=== PATIENT | male | born 1945 | race Caucasian/White ===

== ENCOUNTER 2016-07-04 13:39 | Emergency (ER) | payer MEDICARE, OTHER ==
[~2016-07-04] VITALS: Ht 180.3 cm; Wt 84.1 kg
[~2016-07-04 13:39] MED LIST: AGGRENOX; AMLO-147 PO; CHOLESTEROL MED; CLOP75TA27 PO; HYDR-3498 PO; IBUP-1542 PO; LOSA100T7 PO; METO-429 PO; MIRA25TA PO; MONT10TA24 PO; SILO8CAP PO; TAMS-14 PO; ZOF8 PO; [UNRECOGNIZED DRUG - REMARK]; [UNRECOGNIZED DRUG - REMARK]
[2016-07-04 13:40] VITALS: Ht 180.3 cm; Wt 84.1 kg
[2016-07-04] MEDS ORDERED: morphine 4 MG/ML VIAL IV STA (16:48)
[2016-07-04] MEDS ORDERED: ONDANSETRON 4 MG INJ IV STA ×2 (16:48→18:47)
[2016-07-04] MEDS ORDERED: SOD CHLORIDE 0.9% 1,000 ML IV STA ×2 (16:48→18:47)
[2016-07-04 17:36] LABS: ADD SCAN DIFF NO
[2016-07-04 17:38] LABS: BASOPHILS % 0.5 % (0.0-2.0); EOSINOPHILS # 0.1 10^3/ul (0.0-0.5); EOSINOPHILS % 1.5 % (0.0-7.0); HEMATOCRIT 43.8 % (42.0-52.0); HEMOGLOBIN 14.1 g/dl (14.0-18.0); LYMPHOCYTES # 1.5 10^3/ul (0.8-2.9); LYMPHOCYTES % 25.8 % (15.0-51.0); MEAN CORPUSCULAR HEMOGLOBIN 29.1 pg (29.0-33.0); MEAN CORPUSCULAR HGB CONC 32.2 g/dl (32.0-37.0); MEAN CORPUSCULAR VOLUME 90.3 fl (82.0-101.0); MEAN PLATELET VOLUME 11.1 fl (7.4-10.4); MONOCYTE # 0.6 10^3/ul (0.3-0.9); MONOCYTES % 10.7 % (0.0-11.0); NEUTROPHIL # 3.7 10^3/ul (1.6-7.5); NEUTROPHILS % 61.2 % (39.0-77.0); PLATELET COUNT 185 10^3/UL (140-415); RED BLOOD COUNT 4.85 10^6/ul (4.70-6.10); RED CELL DISTRIBUTION WIDTH 14.5 % (11.5-14.5)
[2016-07-04 17:48] LABS: INR 0.93; PARTIAL THROMBOPLASTIN TIME 27.4 Sec (25.0-35.0); PROTIME 12.5 Sec (12.2-14.2)
[2016-07-04 17:50] LABS: CHLORIDE 104 mmol/L (97-110)
[2016-07-04 17:51] LABS: POTASSIUM 3.7 mmol/L (3.5-5.1); SODIUM 143 mmol/L (135-144)
[2016-07-04 17:53] LABS: ALBUMIN/GLOBULIN RATIO 1.11; ALKALINE PHOSPHATASE 92 IU/L (42-121); AMYLASE 92 U/L (11-123); ANION GAP 15 (8-16); ASPARTATE AMINO TRANSFERASE 24 IU/L (15-46); BILIRUBIN,INDIRECT 0.6 mg/dl (0-1.1); BILIRUBIN,TOTAL 0.6 mg/dl (0.2-1.3); BLOOD UREA NITROGEN 13 mg/dl (7-20); CARBON DIOXIDE 28 mmol/L (21-31); TOTAL PROTEIN 7.6 g/dl (6.1-8.1)
[2016-07-04 17:54] LABS: ALANINE AMINOTRANSFERASE 33 IU/L (13-69); CALCIUM 9.2 mg/dl (8.4-10.2); GLUCOSE 98 mg/dl (70-220)
[2016-07-04 18:07] LABS: TROPONIN-I < 0.012 ng/ml (0.00-0.12)
[2016-07-04 18:30] VITALS: BP 142/121; PULSE 71; RESP 18; TEMP 97.8
[2016-07-04] MEDS ORDERED: HYDROmorphONE 1 MG/ML SYG IV STA (18:47)
--- NOTE | 2016-07-04 18:54 | RADRPT ---
AMENDMENT: 07/04/2016 7:02:52 PM Severo Hall M.d Bilateral adrenal nodules are seen with the largest seen on the left side measuring 2.5 x 2 cm in si ze and are of fat attenuation in consistent with adenomas. Compared to the prior examination, no si gnificant interval change is seen. PROCEDURE: CT abdomen and pelvis without IV contrast. CLINICAL INDICATION: Abdominal pain and right flank pain TECHNIQUE: CT scan of the abdomen and pelvis without contrast was performed on the [employer] volumetric [address] scanner. The patient was scanned without intravenous contrast. Coronal and sagittal refo rmatted images were obtained from the axial source images. The CTDI vol is 15.03 mGy and the DLP is 821.97 mGy-cm. COMPARISON: 02/05/2015 FINDINGS: CT abdomen: Emphysematous changes in the lung bases is seen. The heart size is not enlarged and is without bhumi cardial thickening or effusion. The liver is normal in size and is without focal mass or intrahepatic biliary dilatation. Fatty infi ltration of the liver is seen. The spleen is normal in size and homogeneous in density. The stomach is grossly unremarkable. The pancreas as visualized is normal. The gallbladder and biliary tree a re unremarkable and there is no evidence for common bile duct dilatation. The adrenal glands are sy mmetric and normal. The kidneys are symmetrically unremarkable as well. Bilateral renal cysts are o nce again seen. A small nonobstructing calculus is once again noted in the mid right kidney measuri ng 2 mm which appears have not changed significantly. No renal calculus or obstructive uropathy or m ass lesion is seen. The aorta is of normal in caliber. Atherosclerotic vascular disease is seen. There is no retroperito sylwia lymphadenopathy. The narciso hepatis region is clear. Mild diverticulosis in the distal descend ing colon is seen without evidence of diverticulitis. The small and remainder of the large bowel an d mesentery, as visualized, are otherwise unremarkable. The normal appendix is identified. CT pelvis: The prostate is again noted to be moderately enlarged. Brachytherapy beads are once again seen. Sl ightly prominent lymph nodes are seen in the pelvic sidewall bilaterally once again which are not en larged by size criteria but are prominent in number. The inguinal regions are clear. No pelvic mas s, lymphadenopathy, or free fluid is otherwise seen. No acute inflammation is seen. The urinary bl adder is within normal limits. Degenerative spondylosis of the lumbar spine is seen. No osteolytic or osteoblastic lesion is detec luis carlos. IMPRESSION: 1. Fatty infiltration of the liver. 2. 2 mm nonobstructing right renal calculus which appears stable. 3. Moderately enlarged prostate as well as brachytherapy beads again seen which has not changed sig nificantly. Recommend PSA correlation. 4. Slightly prominent pelvic side chain lymph nodes are again seen which appears stable. 5. Mild diverticulosis in the distal descending colon. RPTAT: HPNM Physician Rob Date Time Electronically viewed and signed by Physician Rob on 07/04/2016 19:02 /
--- NOTE | 2016-07-04 19:13 | ERD ---
ER Documentation Chief Complaint Date/Time DATE: 07/04/16 TIME: 19:10 Chief Complaint RIGHT FLANK PAIN SINCE YESTERDAY HPI This is a very pleasant 71-year-old male that presents to the emergency department complaining of persistent right flank pain for the past 24 hours. He states the pain is a sharp shooting pain, 10 out of 10 in intensity and does not radiate to the right lower quadrant. He has had similar pain in the past roughly 2 years ago when he had nephrolithiasis on the left side. He did not require any surgical intervention as the stone passed on its own. The patient did not take any analgesic medication prior to arrival. He denies any nausea vomiting or diarrhea. He has no chest pain or pressure that radiates to the neck arm back or jaw. No shortness of breath at rest or exertion. Denies any recent remote trauma to the abdomen. He denies any difficulty with urination has no gross hematuria ROS All systems reviewed and are negative except as per history of present illness. Medications Home Meds Active Scripts Tamsulosin Hcl* (Flomax*) 0.4 Mg Cap.er.24h, 0.4 MG PO QAM, #10 CAP Prov:VIOLET SANABRIA MD 02/05/15 Hydrocodone Bit-Acetaminophen* (Rosamond*) 5-325 Mg Tab, 1 TAB PO Q6 Y for PAIN, # 10 TAB Prov:VIOLET SANABRIA MD 02/05/15 Ondansetron Hcl* (Zofran* ODT) 8 mg -ODT Tab.disper, 8 MG PO Q6 Y for NAUSEA AND /OR VOMITING, #10 TAB Prov:VIOLET SANABRIA MD 02/05/15 Ibuprofen* (Motrin*) 600 Mg Tab, 600 MG PO Q8, #10 Prov:VIOLET SANABRIA MD 02/05/15 Reported Medications Clopidogrel Bisulfate (Clopidogrel) 75 Mg Tablet, 75 MG PO DAILY, TAB 02/05/15 Losartan Potassium* (Losartan Potassium*) 100 Mg Tablet, 100 MG PO DAILY, TAB 02/05/15 Montelukast Sodium* (Montelukast Sodium*) 10 Mg Tablet, 10 MG PO HS, TAB 02/05/15 Metoprolol Tartrate* (Lopressor*) 50 Mg Tab, 50 MG PO BID, TAB 02/05/15 Amlodipine Besylate* (Amlodipine Besylate*) 10 Mg Tablet, 10 MG PO DAILY, TAB 02/05/15 Mirabegron (Mybetriq) 25 Mg Tab.er.24h, 50 MG PO DAILY, TAB 02/05/15 Silodosin (Rapaflo) 8 Mg Capsule, 8 MG PO HS, CAP 02/05/15 Allergies Allergies: Coded Allergies: No Known Allergy (Verified , 02/05/15) PMhx/Soc Medical and Surgical Hx: pt denies Medical Hx, pt denies Surgical Hx History of Surgery: No Anesthesia Reaction: No Hx Neurological Disorder: No Hx Respiratory Disorders: No Hx Cardiac Disorders: No Hx Psychiatric Problems: No Hx Miscellaneous Medical Probl: No Hx Alcohol Use: No Hx Substance Use: No Hx Tobacco Use: No Smoking Status: Unknown if ever smoked Physical Exam Vitals Vital Signs Date Time Temp Pulse Resp B/P Pulse Ox O2 Delivery O2 Flow Rate FiO2 07/04/16 18:30 97.8 71 18 142/121 100 Room Air 07/04/16 13:40 97.8 117 26 149/78 100 Physical Exam Constitutional:Well-developed. Well-nourished. Vision unable to find a comfortable position due to pain HEENT:Normocephalic. Atraumatic.Pupils were equal round reactive to light. Moist mucous membranes.No tonsillar exudates. Neck: No nuchal rigidity. No lymphadenopathy. No posterior cervical spine tenderness or step-offs. Respiratory: Not using accessory muscles of respiration.Lungs were clear to auscultation bilaterally. No rhonchi. No rales. No wheezing. Cardiovascular: Regular rate regular rhythm.No murmurs. No rubs were appreciated.S1, S2 normal. Distal pulses are palpable 2+ bilaterally. GI: Abdomen was soft. Right CVA tenderness. Non Distended. No pulsatile abdominal masses or bruits. No rebound. No guarding. Bowel sounds were present and normal. Muscle skeletal: Full range of motion of both the upper and lower extremities bilaterally.Normal muscle tone.No assymetrical calf tenderness or swelling. Skin: No petechia, no purpura. No lesions on the palms or the soles of the feet. No maculopapular rash. NEURO: Patient was alert, awake, orientated x3.No facial droop. Gait observed and normal with no ataxia.Speech had regular rate and rhythm. No focal neurological deficits. Result Diagram: 07/04/16 1702 07/04/16 1702 Results 24 hrs Laboratory Tests Test 07/04/16 17:02 White Blood Count 6.010^3/ul Red Blood Count 4.8510^6/ul Hemoglobin 14.1g/dl Hematocrit 43.8% Mean Corpuscular Volume 90.3fl Mean Corpuscular Hemoglobin 29.1pg Mean Corpuscular Hemoglobin Concent 32.2g/dl Red Cell Distribution Width 14.5% Platelet Count 62832^3/UL Mean Platelet Volume 11.1fl Neutrophils % 61.2% Lymphocytes % 25.8% Monocytes % 10.7% Eosinophils % 1.5% Basophils % 0.5% Nucleated Red Blood Cells % 0.0/100WBC Neutrophils # 3.710^3/ul Lymphocytes # 1.510^3/ul Monocytes # 0.610^3/ul Eosinophils # 0.110^3/ul Basophils # 0.010^3/ul Nucleated Red Blood Cells # 0.010^3/ul Prothrombin Time 12.5Sec Prothrombin Time Ratio 1.0 INR International Normalized Ratio 0.93 Activated Partial Thromboplast Time 27.4Sec Sodium Level 143mmol/L Potassium Level 3.7mmol/L Chloride Level 104mmol/L Carbon Dioxide Level 28mmol/L Anion Gap 15 Blood Urea Nitrogen 13mg/dl Creatinine 0.60mg/dl Glucose Level 98mg/dl Calcium Level 9.2mg/dl Total Bilirubin 0.6mg/dl Direct Bilirubin 0.00mg/dl Indirect Bilirubin 0.6mg/dl Aspartate Amino Transf (AST/SGOT) 24IU/L Alanine Aminotransferase (ALT/SGPT) 33IU/L Alkaline Phosphatase 92IU/L Troponin I < 0.012ng/ml Total Protein 7.6g/dl Albumin 4.0g/dl Globulin 3.60g/dl Albumin/Globulin Ratio 1.11 Amylase Level 92U/L Lipase 37U/L Current Medications Medications (Trade) Dose Ordered Sig/Nigel Route PRN Reason Start Time Stop Time Status Last Admin Dose Admin Sodium Chloride (NS) 1,000 ml @ 1,000 mls/hr Q1H STAT IV 07/04/16 16:48 07/04/16 17:47 DC 07/04/16 17:15 Morphine Sulfate (morphine) 4 mg ONCE STAT IV 07/04/16 16:48 07/04/16 16:49 DC 07/04/16 17:14 Ondansetron HCl 4 mg 4 mg ONCE STAT IV 07/04/16 16:48 07/04/16 16:49 DC 07/04/16 17:14 Sodium Chloride (NS) 1,000 ml @ 1,000 mls/hr Q1H STAT IV 07/04/16 18:47 07/04/16 19:46 Hydromorphone HCl (Dilaudid) 1 mg ONCE STAT IV 07/04/16 18:47 07/04/16 18:50 DC Ondansetron HCl (Zofran Inj) 4 mg ONCE STAT IV 07/04/16 18:47 07/04/16 18:50 DC Procedures/MDM This patient presented to the emergency department with abdominal pain and was seen and evaluated by myself. My differential diagnosis included but was not limited to abdominal aortic aneurysm, appendicitis, pancreatitis, perforated peptic ulcer, perforated viscus, Boerhaaves syndrome or visceral pain such as diverticulitis, DKA, esophagitis, hepatitis or bowel obstruction. The patient was placed on a bindery manager, continuous pulse oximetry, and IV access was established by nursing staff. The patient received intravenous Toradol Zofran and a liter bolus of 0.9 normal saline with complete resolution of his pain. I did obtain a 12-lead EKG tracing to rule out atypical myocardial infarction. 12 Lead EKG tracing ordered and reviewed by myself showed: Normal sinus rhythm of 66 bpm and no arrhythmia. KS interval normal. QRS duration normal. No ST segment elevation No ST segment depression. No changes consistent with acute ischemia. I obtained a CT scan of the abdomen without IV contrast which did indicate the followin. Fatty infiltration of the liver. 2. 2 mm nonobstructing right renal calculus which appears stable. 3. Moderately enlarged prostate as well as brachytherapy beads again seen which has not changed significantly. Recommend PSA correlation. 4. Slightly prominent pelvic side chain lymph nodes are again seen which appears stable. 5. Mild diverticulosis in the distal descending colon. The patient had no signs of obstructive uropathy or anuria. The patient stated his pain resolved and he felt comfortable being discharged home. The patient was sent home with a prescription of anti-inflammatories, Flomax and prophylactic antibiotics which included ciprofloxacin. The patient was discharged home in fair condition. They were instructed to return to the emergency department at any time if there was any worsening of their condition. The patient stated they would follow up with their PCP in the next 24-48 hours to initiate a suitable medication regimen under the care of their PCP as well as to allow their PCP to monitor any drug reactions. The patient was discharged home with prescriptions after they gave informed consent to the new medication. They were also fully informed by myself on the adverse effects and adverse drug interactions in order to provide adequate safeguards to prevent possible adverse reactions to medications. Departure Diagnosis: Primary Impression: Nephrolithiasis Condition: YANY Miranda Jul 04, 2016 19:13
[2016-07-04] MEDS ORDERED: CIPR500S2 PO (19:15)
[2016-07-04] MEDS ORDERED: IBUP800T25 PO (19:15)
[2016-07-04] MEDS ORDERED: TAMS0.4C2 PO (19:15)
[2016-07-04] MEDS ORDERED: DICLOFENAC SODIUM 37.5 MG/ML VIAL IV STA (19:16)
== END 2016-07-04 19:48 | disposition home or self-care (01) ==
LOC: E/R 13:39
DX: N20.0 Calculus of kidney (principal); M54.6 Pain in thoracic spine
CPT/HCPCS: 74176; 80053; 82150; 83690; 84484; 85025; 85610; 85730; 87040; 93005; 96374; 96375; 99285; J2270; J2405; J7030

== ENCOUNTER 2016-10-01 21:40 | Emergency (ER) | payer MEDICARE, OTHER ==
[~2016-10-01] VITALS: Ht 180.3 cm; Wt 82.0 kg
[~2016-10-01 21:40] MED LIST changes: -AGGRENOX; -CHOLESTEROL MED; +CIPR500S2 PO; +IBUP800T25 PO; +TAMS0.4C2 PO; -[UNRECOGNIZED DRUG - REMARK]; -[UNRECOGNIZED DRUG - REMARK]
[2016-10-01 21:48] VITALS: Ht 180.3 cm; Wt 82.0 kg
[2016-10-01] MEDS ORDERED: ONDANSETRON 4 MG INJ IV STA (22:28)
[2016-10-01] MEDS ORDERED: HYDROmorphONE 1 MG/ML SYG IV STA (22:28)
[2016-10-01 22:41] LABS: BASOPHILS % 0.5 % (0.0-2.0); EOSINOPHILS # 0.1 10^3/ul (0.0-0.5); EOSINOPHILS % 1.4 % (0.0-7.0); HEMATOCRIT 40.5 % (42.0-52.0); HEMOGLOBIN 13.5 g/dl (14.0-18.0); LYMPHOCYTES # 1.6 10^3/ul (0.8-2.9); LYMPHOCYTES % 24.4 % (15.0-51.0); MEAN CORPUSCULAR HEMOGLOBIN 30.1 pg (29.0-33.0); MEAN CORPUSCULAR HGB CONC 33.3 g/dl (32.0-37.0); MEAN CORPUSCULAR VOLUME 90.4 fl (82.0-101.0); MONOCYTE # 0.8 10^3/ul (0.3-0.9); NEUTROPHIL # 4.1 10^3/ul (1.6-7.5); NEUTROPHILS % 61.2 % (39.0-77.0); PLATELET COUNT 187 10^3/UL (140-415); RED BLOOD COUNT 4.48 10^6/ul (4.70-6.10); RED CELL DISTRIBUTION WIDTH 13.8 % (11.5-14.5); WHITE BLOOD COUNT 6.7 10^3/ul (4.8-10.8)
--- NOTE | 2016-10-01 22:45 | ERD ---
ER Documentation Chief Complaint Date/Time DATE: 10/01/16 TIME: 22:44 Chief Complaint C/O right sided flank pain x 3 wks. (+) Nausea. Hx of kidney stones. HPI This is a 71-year-old male who had a kidney stone 3 weeks ago that was 2 mm in size. The patient states he has been taking one Anton a day for pain. He said tonight the pain got worse as described as sharp right flank pain radiating to the right lower quadrant. He says it feels like a stone. The pain is now much better. No hematuria no dysuria no chest pain shortness of breath no vomiting diarrhea but he does have some intermittent constipation. ROS All systems reviewed and are negative except as per history of present illness. Medications Home Meds Active Scripts Hydrocodone/Acetaminophen (Anton 10-325 Tablet) 1 Each Tablet, 1 TAB PO Q6H Y for PAIN, #20 TAB Prov:BECCA KRAMER DO 10/02/16 Ciprofloxacin (Ciprofloxacin) 500 Mg/[address] [facility].rec, 500 MG PO BID, #14 TAB Prov:YANY GRIFFITH 07/04/16 Ibuprofen* (Ibuprofen*) 800 Mg Tablet, 800 MG PO Q8, #30 TAB Prov:YANY GRIFFITH 07/04/16 Tamsulosin Hcl* (Tamsulosin Hcl*) 0.4 Mg Cap.er.24h, 0.4 MG PO DAILY for 14 Days , CAP Prov:YANY GRIFFITH 07/04/16 Tamsulosin Hcl* (Flomax*) 0.4 Mg Cap.er.24h, 0.4 MG PO QAM, #10 CAP Prov:VIOLET SANABRIA MD 02/05/15 Hydrocodone Bit-Acetaminophen* (Anton*) 5-325 Mg Tab, 1 TAB PO Q6 Y for PAIN, # 10 TAB Prov:VIOLET SANABRIA MD 02/05/15 Ondansetron Hcl* (Zofran* ODT) 8 mg -ODT Tab.disper, 8 MG PO Q6 Y for NAUSEA AND /OR VOMITING, #10 TAB Prov:VIOLET SANABRIA MD 02/05/15 Ibuprofen* (Motrin*) 600 Mg Tab, 600 MG PO Q8, #10 Prov:VIOLET SANABRIA MD 02/05/15 Reported Medications Clopidogrel Bisulfate (Clopidogrel) 75 Mg Tablet, 75 MG PO DAILY, TAB 02/05/15 Losartan Potassium* (Losartan Potassium*) 100 Mg Tablet, 100 MG PO DAILY, TAB 02/05/15 Montelukast Sodium* (Montelukast Sodium*) 10 Mg Tablet, 10 MG PO HS, TAB 02/05/15 Metoprolol Tartrate* (Lopressor*) 50 Mg Tab, 50 MG PO BID, TAB 02/05/15 Amlodipine Besylate* (Amlodipine Besylate*) 10 Mg Tablet, 10 MG PO DAILY, TAB 02/05/15 Mirabegron (Mybetriq) 25 Mg Tab.er.24h, 50 MG PO DAILY, TAB 02/05/15 Silodosin (Rapaflo) 8 Mg Capsule, 8 MG PO HS, CAP 02/05/15 Allergies Allergies: Coded Allergies: No Known Allergy (Verified , 02/05/15) PMhx/Soc History of Surgery: No Anesthesia Reaction: No Hx Neurological Disorder: No Hx Respiratory Disorders: No Hx Cardiac Disorders: Yes (HTN, High Cholesterol, [place] 1970) Hx Psychiatric Problems: No Hx Miscellaneous Medical Probl: Yes (CVA 2004, Kidney Stones) Hx Alcohol Use: No Hx Substance Use: No Hx Tobacco Use: Yes ("If I stop I'll have a heart attack") Smoking Status: Current every day smoker FmHx Family History: No coronary disease Physical Exam Vitals Vital Signs Date Time Temp Pulse Resp B/P Pulse Ox O2 Delivery O2 Flow Rate FiO2 10/01/16 21:48 98.3 74 18 140/78 98 Physical Exam Const: Well-developed, well-nourished Head: Atraumatic, normocephalic Eyes: Normal Conjunctiva, PERRLA, EOMI, normal sclera, no nystagmus ENT: Normal External Ears, Nose and Mouth, moist mucus membranes. Neck: Full range of motion. No meningismus, no lymphadenopathy. Resp: Clear to auscultation bilaterally, no wheezing, rhonchi, rales Cardio: Regular rate and rhythm, no murmurs, S1 S2 present Abd: Soft, mild right mid abdominal pain, non distended. Normal bowel sounds, no guarding or rebound, no pulsitile abdominal masses or bruits Skin: No petechiae or rashes, no ecchymosis , no maculopapular rash Back: No midline or flank tenderness Ext: No cyanosis, or edema, FROM x 4, normal inspection, neurovascularly intact x 4 Neur: Awake and alert, STR 5/5 x 4, sensation intact x 4, no focal findings, cerebellum intact Psych: Normal Mood and Affect Result Diagram: 10/01/16223210/01/162232 Results 24 hrs Laboratory Tests Test 10/01/16 22:33 White Blood Count 6.710^3/ul Red Blood Count 4.4810^6/ul Hemoglobin 13.5g/dl Hematocrit 40.5% Mean Corpuscular Volume 90.4fl Mean Corpuscular Hemoglobin 30.1pg Mean Corpuscular Hemoglobin Concent 33.3g/dl Red Cell Distribution Width 13.8% Platelet Count 28902^3/UL Mean Platelet Volume 11.0fl Neutrophils % 61.2% Lymphocytes % 24.4% Monocytes % 12.0% Eosinophils % 1.4% Basophils % 0.5% Nucleated Red Blood Cells % 0.0/100WBC Neutrophils # 4.110^3/ul Lymphocytes # 1.610^3/ul Monocytes # 0.810^3/ul Eosinophils # 0.110^3/ul Basophils # 0.010^3/ul Nucleated Red Blood Cells # 0.010^3/ul Urine Color YELLOW Urine Clarity CLEAR Urine pH 6.0 Urine Specific [place] 1.016 Urine Ketones NEGATIVEmg/dL Urine Nitrite NEGATIVEmg/dL Urine Bilirubin NEGATIVEmg/dL Urine Urobilinogen NEGATIVEmg/dL Urine Leukocyte Esterase NEGATIVELeu/ul Urine Hemoglobin NEGATIVEmg/dL Urine Glucose NEGATIVEmg/dL Urine Total Protein NEGATIVEmg/dl Sodium Level 147mmol/L Potassium Level 3.9mmol/L Chloride Level 106mmol/L Carbon Dioxide Level 28mmol/L Anion Gap 17 Blood Urea Nitrogen 14mg/dl Creatinine 0.72mg/dl Glucose Level 96mg/dl Calcium Level 9.1mg/dl Total Bilirubin 0.2mg/dl Direct Bilirubin 0.00mg/dl Indirect Bilirubin 0.2mg/dl Aspartate Amino Transf (AST/SGOT) 23IU/L Alanine Aminotransferase (ALT/SGPT) 31IU/L Alkaline Phosphatase 78IU/L Total Protein 7.5g/dl Albumin 4.1g/dl Globulin 3.40g/dl Albumin/Globulin Ratio 1.20 Lipase 63U/L Current Medications Medications (Trade) Dose Ordered Sig/Nigel Route PRN Reason Start Time Stop Time Status Last Admin Dose Admin Hydromorphone HCl (Dilaudid) 1 mg ONCE STAT IV 10/01/16 22:28 10/01/16 22:29 DC 10/01/16 22:48 Ondansetron HCl (Zofran Inj) 4 mg ONCE STAT IV 10/01/16 22:28 10/01/16 22:29 DC 10/01/16 22:48 Procedures/MDM PROCEDURE: CT Abdomen and Pelvis without contrast. CLINICAL INDICATION: Abdominal pain. TECHNIQUE: A CT scan of the abdomen and pelvis was performed without intravenous contrast. Coronal and sagittal reformatted images were generated. Images were reviewed on a high-resolution PACS workstation. CTDIvol: 15.22 mGy. DLP: 881.02 mGy-cm. One or more of the following dose reduction techniques were used: - Automated exposure control. - Adjustment of the mA and/or kV according to patient size. - Use of iterative reconstruction technique. COMPARISON: 07/04/2016 FINDINGS: There are mild to moderate emphysematous changes in the lower lungs. Mild atelectatic changes are also noted at both lung bases. Evaluation of the abdominal and pelvic viscera is limited by the lack of oral and intravenous contrast. The liver is mildly enlarged (18.2 cm). The gallbladder is normal in appearance. The common bile duct is not dilated. The spleen is not enlarged. No pancreatic lesion is identified and there is no pancreatic ductal dilatation. There are bilateral adrenal adenomas measuring 1.3 x 1.3 cm on right and 2.3 x 2.9 cm on the left. The kidneys are normal in size. There is no perinephric fat stranding. No hydronephrosis is seen. There is a 2 mm nonobstructing stone in the right kidney. There are cysts in both kidneys measuring up to 0.9 cm on the left. The small and large bowel are normal in caliber. The descending, proximal sigmoid, and distal rectosigmoid colon is underdistended, limiting evaluation for colonic wall thickening. No pericolonic inflammation is identified, however. The appendix is normal. The urinary bladder is unremarkable. The prostate gland is enlarged. There are surgical clips in the prostate gland, nonspecific. There are mildly prominent bilateral iliac chain lymph nodes, not significantly changed. There is no ascites. No pneumoperitoneum is seen. There are moderate arterial calcifications. No suspicious osseous lesion is idenitified. IMPRESSION: 1. Normal appendix. 2. No hydronephrosis. There is a 2 mm nonobstructing stone in the right kidney. 3. Mild hepatomegaly. 4. Bilateral adrenal adenomas measuring up to 2.9 cm on the left, not significantly changed. 5. Enlarged prostate gland. Correlation with PSA level is recommended. 6. Moderate atherosclerotic arterial calcifications. 7. Mildly prominent bilateral iliac chain lymph nodes, not significantly changed. These are nonspecific. RPTAT: HTAR .Handy Ford MD, MD Date Time Electronically viewed and signed by .Handy Ford MD, on 10/02/2016 00:12 .R/ CC: BECCA KRAMER DO Patient sustained to me that actually is stomach pain is due to some bloating he is having after eating. I told him to avoid dairy and gluten and he may be having some food sensitivity or lactose intolerance. Is going to try this. His lab work is unremarkable and CAT scans unremarkable Departure Diagnosis: Primary Impression: Kidney stone Condition: Stable BECCA KRAMER DO Oct 01, 2016 22:45
[2016-10-01 22:53] LABS: ADD UMIC NO; UR ASCORBIC ACID NEGATIVE (NEGATIVE); UR BILIRUBIN (Dip) NEGATIVE (NEGATIVE); UR BLOOD (Dip) NEGATIVE (NEGATIVE); UR CLARITY CLEAR (CLEAR); UR COLOR YELLOW (YELLOW); UR GLUCOSE (Dip) NEGATIVE (NEGATIVE); UR KETONES (Dip) NEGATIVE (NEGATIVE); UR LEUKOCYTE ESTERASE (Dip) NEGATIVE Leu/ul (NEGATIVE); UR NITRITE (Dip) NEGATIVE (NEGATIVE); UR SPECIFIC GRAVITY (Dip) 1.016 (1.003-1.030); UR TOTAL PROTEIN (Dip) NEGATIVE (NEGATIVE); UR UROBILINOGEN (Dip) NEGATIVE (NEGATIVE)
[2016-10-01 23:03] LABS: ALBUMIN 4.1 g/dl (3.3-4.9); ALBUMIN/GLOBULIN RATIO 1.2; BILIRUBIN,INDIRECT 0.2 mg/dl (0-1.1); BILIRUBIN,TOTAL 0.2 mg/dl (0.2-1.3); CALCIUM 9.1 mg/dl (8.4-10.2); CREATININE 0.72 mg/dl (0.61-1.24); POTASSIUM 3.9 mmol/L (3.5-5.1); TOTAL PROTEIN 7.5 g/dl (6.1-8.1)
--- NOTE | 2016-10-02 00:12 | RADRPT ---
PROCEDURE: CT Abdomen and Pelvis without contrast. CLINICAL INDICATION: Abdominal pain. TECHNIQUE: A CT scan of the abdomen and pelvis was performed without intravenous contrast. Ji l and sagittal reformatted images were generated. Images were reviewed on a high-resolution PACS wor kstation. CTDIvol: 15.22 mGy. DLP: 881.02 mGy-cm. One or more of the following dose reduction techniques were used: - Automated exposure control. - Adjustment of the mA and/or kV according to patient size. - Use of iterative reconstruction technique. COMPARISON: 07/04/2016 FINDINGS: There are mild to moderate emphysematous changes in the lower lungs. Mild atelectatic changes are a lso noted at both lung bases. Evaluation of the abdominal and pelvic viscera is limited by the lack of oral and intravenous contra st. The liver is mildly enlarged (18.2 cm). The gallbladder is normal in appearance. The common bile du ct is not dilated. The spleen is not enlarged. No pancreatic lesion is identified and there is no pa ncreatic ductal dilatation. There are bilateral adrenal adenomas measuring 1.3 x 1.3 cm on right and 2.3 x 2.9 cm on the left. The kidneys are normal in size. There is no perinephric fat stranding. No hydronephrosis is seen. Th ere is a 2 mm nonobstructing stone in the right kidney. There are cysts in both kidneys measuring u p to 0.9 cm on the left. The small and large bowel are normal in caliber. The descending, proximal sigmoid, and distal rectos igmoid colon is underdistended, limiting evaluation for colonic wall thickening. No pericolonic infl ammation is identified, however. The appendix is normal. The urinary bladder is unremarkable. The prostate gland is enlarged. There are surgical clips in the prostate gland, nonspecific. There are mildly prominent bilateral iliac chain lymph nodes, not significantly changed. There is no ascites. No pneumoperitoneum is seen. There are moderate arterial calcifications. No suspicious osseous lesion is idenitified. IMPRESSION: 1. Normal appendix. 2. No hydronephrosis. There is a 2 mm nonobstructing stone in the right kidney. 3. Mild hepatomegaly. 4. Bilateral adrenal adenomas measuring up to 2.9 cm on the left, not significantly changed. 5. Enlarged prostate gland. Correlation with PSA level is recommended. 6. Moderate atherosclerotic arterial calcifications. 7. Mildly prominent bilateral iliac chain lymph nodes, not significantly changed. These are nonspe cific. RPTAT: HTAR .Handy Ford MD, Date Time Electronically viewed and signed by .Handy Ford MD, on 10/02/2016 00:12 .R/
[2016-10-02] MEDS ORDERED: HYDR-902 PO (00:42)
[2016-10-02 01:18] VITALS: BP 151/79; PULSE 69; RESP 18
== END 2016-10-02 01:18 | disposition home or self-care (01) ==
LOC: E/R 21:40
DX: N20.0 Calculus of kidney (principal); I10 Essential (primary) hypertension; F17.210 Nicotine dependence, cigarettes, uncomplicated
CPT/HCPCS: 36415; 74176; 80053; 81003; 83690; 85025; 96374; 96375; 99285; J1170; J2405

== ENCOUNTER 2017-08-25 12:26 | Emergency (ER) | END 2017-08-25 15:10 | disposition home or self-care (01) ==